=== PATIENT | male | born 1955 | race Hispanic/Latino ===

== ENCOUNTER 2017-10-08 12:55 | Emergency (ER) | payer MEDICAID ==
[~2017-10-08 12:55] MED LIST: ADRENALIN ONE; CALCIUM CHLORIDE IV ONE; CORDARONE IV ONE; MAGNESIUM SULFATE ONE
--- NOTE | 2017-10-08 14:26 | Emergency Department Report ---
ED CPR HPI - General Chief Complaint: Cardiac Arrest/CPR Stated Complaint: CARDIAC ARREST Time Seen by Provider: 10/08/17 13:06 Source: EMS (verbal report received from EMS.ems notes not available at time of chart dictation) Mode of arrival: Stretcher Limitations: Altered Mental Status, Physical Limitation - History of Present Illness Initial Comments: This is a 62-year-old gentleman who is brought to the hospital by EMS as an out of hospital cardiac arrest. EMS reports the patient was with a friend, and collapsed. EMS intubated the patient in the field, and began high-quality chest compressions. The left lower extremity intraosseous line was placed. EMS reported that the patient required 3 shocks for ventricular arrhythmia. Upon arrival to the ER, the patient is pulseless and receiving CPR. Pupils are midpoint and do not react to light. Standard ACLS interventions are pursued. Patient continues to high-quality CPR. Unfortunately, we are unable to again return of spontaneous circulation. Resuscitation efforts are terminated secondary to medical fertility and prolonged downtime. As of now, no family is available for collateral information MD Complaint: collapsed during activity -: minute(s) Initial Findings in the Field: VTACH/VFIB Treatments Prior to Arrival: intubation, chest compressions, defribrillated shocks #, epinephrine mgs # - Related Data Home Medications Medication Instructions Recorded Confirmed Last Taken Aspirin [Aspirin TAB] 325 mg PO QDAY 08/10/13 08/10/13 08/10/13 Clopidogrel [Plavix] 75 mg PO QDAY 08/10/13 08/10/13 08/10/[address] [Voltaren] 75 mg PO BID 08/10/13 08/10/13 08/10/13 Lisinopril [Zestril] 20 mg PO QDAY 08/10/13 08/10/13 08/10/13 Metoprolol [Lopressor] 25 mg PO DAILY 08/10/13 08/10/13 08/10/13 Pravastatin [Pravachol (Nf)] 40 mg PO DAILY 08/10/13 08/10/13 08/10/13 Allergies Allergy/AdvReac Type Severity Reaction Status Date / Time No Known Allergies Allergy Verified 08/10/13 21:10 ED Review of Systems ROS: Stated complaint: CARDIAC ARREST Other details as noted in HPI Comment: Unobtainable due to pts medical conditions ED Past Medical Hx - Past Medical History Hx Hypertension: Yes Hx Heart Attack/AMI: Yes - Surgical History Hx Coronary Stent: Yes Hx Open Heart Surgery: Yes Hx Appendectomy: Yes Additional Surgical History: 4 bypass, coronary stents - Social History Smoking Status: Current Some Day Smoker Substance Use Type: None - Medications Home Medications: Home Medications Medication Instructions Recorded Confirmed Last Taken Type Aspirin [Aspirin TAB] 325 mg PO QDAY 08/10/13 08/10/13 08/10/13 History Clopidogrel [Plavix] 75 mg PO QDAY 08/10/13 08/10/13 08/10/[address] [Voltaren] 75 mg PO BID 08/10/13 08/10/13 08/10/13 History Lisinopril [Zestril] 20 mg PO QDAY 08/10/13 08/10/13 08/10/13 History Metoprolol [Lopressor] 25 mg PO DAILY 08/10/13 08/10/13 08/10/13 History Pravastatin [Pravachol (Nf)] 40 mg PO DAILY 08/10/13 08/10/13 08/10/13 History ED Physical Exam - General Limitations: Physical Limitation General appearance: other (intubated, nonverbal, GCS of) - Head Head exam: Present: atraumatic - Eye Eye exam: Present: other (pupils are midpoint and do not react to light) - ENT ENT exam: Present: other (endotracheal tube is noted in the oropharynx) - Neck Neck exam: Present: normal inspection - Respiratory Respiratory exam: Present: other (no breath sounds are noted) - Cardiovascular Cardiovascular Exam: Absent: normal heart sounds (patient is pulseless) - GI/Abdominal GI/Abdominal exam: Present: distended - Extremities Exam Extremities exam: Absent: normal inspection (extremities are mottled. Intraosseous IV as noted in the left lower extremity) - Back Exam Back exam: Present: normal inspection - Neurological Exam Neurological exam: Present: altered (GCS of 3, nonverbal) - Psychiatric Psychiatric exam: Present: other (patient is nonverbal) - Skin Skin exam: Present: dry (patient is mottled) - EJ/Peripheral Line Arm R Time Out Performed: No Indications: multiple IV sites needed Skin Cleansed in Sterile Fashion: Yes Size: 20 Dressing Placed: Tegaderm Patient Tolerated Procedure: well ED Medical Decision Making - Medical Decision Making Differential diagnosis, including but not limited to: Acute coronary syndrome, pulmonary embolus, sepsis, toxic ingestion, intracranial hemorrhage Critical care attestation.: If time is entered above; I have spent that time in minutes in the direct care of this critically ill patient, excluding procedure time. ED Disposition Clinical Impression: Cardiac arrest Disposition: [id number]-20 Is pt being admited?: No Does the pt Need Aspirin: No Condition: Undetermined Referrals: PRIMARY CARE, [Primary Care Provider] - 3-5 Days
== END 2017-10-08 14:00 ==
LOC: ED 12:55
DX: I46.9 Cardiac arrest, cause unspecified (principal); I10 Essential (primary) hypertension; F17.200 Nicotine dependence, unspecified, uncomplicated; Z90.49 Acquired absence of other specified parts of digestive tract; Z95.818 Presence of other cardiac implants and grafts; Z79.899 Other long term (current) drug therapy
CPT/HCPCS: 36569; 92950; 99285; J0171; J0282; J3475